=== PATIENT | female | born 1980 | race Caucasian/White ===

== ENCOUNTER 2017-09-03 02:28 | Emergency (ER) | payer OTHER ==
[~2017-09-03] VITALS: Ht 154.9 cm; Wt 63.5 kg
[~2017-09-03 02:28] MED LIST: CALC600T18 PO; FERR325E14 PO; FOLI1TAB19 PO; PREN-385 PO
[2017-09-03 02:32] VITALS: BP 120/86
[2017-09-03] MEDS ORDERED: NACL 0.9% 1,000 ML IV SCH (03:02)
[2017-09-03] MEDS ORDERED: ACETAMINOPHEN EXTRA STRENGTH 500 MG TAB PO ONE (03:05)
[2017-09-03 03:28] LABS: APPEARANCE,URINE CLEAR (CLEAR); BILIRUBIN,URINE NEGATIVE (NEGATIVE); BLOOD, URINE 3+ (NEGATIVE); COLOR,URINE YELLOW (YELLOW); LEUKOCYTE ESTERASE ,URINE NEGATIVE (NEGATIVE); NITRITE, URINE NEGATIVE (NEGATIVE); PH,URINE 5.5 (5.0-9.0); UGLUCOSE NEGATIVE (NEGATIVE)
[2017-09-03 03:48] LABS: RBC,URINE 0-5 (RARE) /HPF (0-5); WBC,URINE 0-5 (RARE) /HPF (0-5)
[2017-09-03 04:10] LABS: ALBUMIN 3.8 g/dL (3.4-5.0); ANION GAP 15.5 (8-16); CARBON DIOXIDE 23.3 mmol/L (21-32); CREATININE 0.8 mg/dL (0.6-1.3); POTASSIUM 3.8 mmol/L (3.5-5.1); TOTAL BILIRUBIN 0.3 mg/dL (0.0-1.0)
[2017-09-03 04:19] LABS: HEMATOCRIT 37.1 % (36-48); MEAN CORPUSCULAR HEMOGLOBIN 25 pg (27-31); MEAN CORPUSCULAR HGB CONC 32 g/dL (33-37); PLATELET COUNT (AUTO) 252 K/uL (140-450); RED BLOOD CELL COUNT(AUTO) 4.82 MIL/uL (4.20-5.40); RED CELL DISTRIBUTION WIDTH 20.9 % (11.6-13.7); WHITE BLOOD COUNT (AUTO) 8.5 K/uL (4.8-10.8)
[2017-09-03 04:49] LABS: EOSINOPHILS % (MANUAL) 1 % (0-4); LYMPHOCYTES % (MANUAL) 32 % (20-46); MONOCYTES % (MANUAL) 10 % (5-12)
[2017-09-03 05:01] VITALS: BP 120/86
== END 2017-09-03 05:01 | disposition home or self-care (01) ==
LOC: MED 02:28
DX: O20.0 Threatened abortion (principal); Z79.899 Other long term (current) drug therapy; Z3A.01 Less than 8 weeks gestation of pregnancy
CPT/HCPCS: 36415; 76817; 80053; 81001; 83690; 84702; 85025; 86900; 86901; 99285; Q0092; 81025

== ENCOUNTER 2018-12-25 02:23 | Inpatient (IN) | payer OTHER ==
[~2018-12-25] VITALS: Ht 154.9 cm; Wt 63.5 kg
--- NOTE | 2018-12-25 02:40 | NUR ---
PATIENT LAYING SUPINE IN BED. IN SEVERE PAIN. DR FRIEDMAN MADE AWARE. BED IN LOW LOCKED POSTION. PATIENT ON MONITOR.
[2018-12-25 02:45] VITALS: BP 139/85
--- NOTE | 2018-12-25 02:45 | NUR ---
DR FRIEDMAN AT BEDSIDE ASSESSING PATIENT.
[2018-12-25] MEDS ORDERED: NACL 0.9% 500 ML IV ONE (02:53)
[2018-12-25] MEDS ORDERED: ONDANSETRON 4 MG/2 ML VIAL IVP ONE (02:55)
[2018-12-25] MEDS ORDERED: KETOROLAC 30 MG/ML VIAL IVP ONE (02:55)
--- NOTE | 2018-12-25 03:00 | NUR ---
20G IV STARTED IN RAC. PATENT, FLUSHED WITH GOOD BLOOD RETURN. PATIENT TOLERATED WELL.
[2018-12-25 03:14] LABS: BASOPHILS % (AUTO) 0.5 % (0.0-2.0); EOSINOPHILS # (AUTO) 0.2 K/uL (0-0.4); EOSINOPHILS % (AUTO) 1.8 % (0.0-4.0); HEMATOCRIT 38.5 % (36-48); LYMPHOCYTES # (AUTO) 2.4 K/uL (2.5-16.5); LYMPHOCYTES % (AUTO) 24.7 % (20.5-51.1); MEAN CORPUSCULAR HEMOGLOBIN 30 pg (27-31); MEAN CORPUSCULAR HGB CONC 34 g/dL (33-37); MEAN CORPUSCULAR VOLUME 88.6 fL (80-94); MONOCYTES # (AUTO) 0.7 K/uL (0.8-1.0); MONOCYTES % (AUTO) 7.4 % (1.7-9.3); NEUTROPHILS # (AUTO) 6.5 K/uL (1.8-7.7); NEUTROPHILS % (AUTO) 65.6 % (42.2-75.2); PLATELET COUNT (AUTO) 299 K/uL (140-450); RED BLOOD CELL COUNT(AUTO) 4.35 MIL/uL (4.20-5.40); RED CELL DISTRIBUTION WIDTH 13.2 % (11.6-13.7); WHITE BLOOD COUNT (AUTO) 9.9 K/uL (4.8-10.8)
[2018-12-25 03:15] LABS: ANION GAP 12.3 (8-16); CARBON DIOXIDE 28.9 mmol/L (21-32); CREATININE 0.8 mg/dL (0.6-1.3); POTASSIUM 3.2 mmol/L (3.5-5.1)
[2018-12-25] MEDS ORDERED: MORPHINE SULFATE 2 MG/ML SYR IVP ONE (03:15)
[2018-12-25 03:23] LABS: ALBUMIN 3.5 g/dL (3.4-5.0); TOTAL BILIRUBIN 0.4 mg/dL (0.0-1.0)
--- NOTE | 2018-12-25 03:39 | NUR ---
PATIENT COMPLAINING OF CONTINUED SEVERE PAIN AND STATES THAT SHE NEEDS SOMETHING MORE FOR THE PAIN. DR FRIEDMAN MADE AWARE.
[2018-12-25] MEDS ORDERED: LORazepam 2 MG/ML VIAL IVP ONE (03:40)
--- NOTE | 2018-12-25 03:50 | NUR ---
PATIENT TAKEN TO CT IN WHEELCHAIR
--- NOTE | 2018-12-25 04:22 | NUR ---
patient sleeping in bed. arousable, states pain has improved. vss on monitor.
--- NOTE | 2018-12-25 05:58 | NUR ---
PATIENT RESTING IN BED. NO NEEDS STATED AT THIS TIME.
--- NOTE | 2018-12-25 06:46 | NUR ---
SPOKE WITH CASE MANAGEMENT THEY STATED SHE WOULD BE CLEARED TO BE ADMITTED.
[2018-12-25] MEDS ORDERED: ACETAMINOPHEN 325 MG TAB PO PRN (07:00)
[2018-12-25] MEDS ORDERED: ALBUTEROL 0.083% 2.5 MG/3 ML NEBU INH PRN (07:00)
[2018-12-25] MEDS ORDERED: ONDANSETRON 4 MG/2 ML VIAL IVP PRN (07:00)
[2018-12-25] MEDS ORDERED: HYDROcodone/APAP 5/325 MG 1 TAB TAB PO PRN (07:00)
[2018-12-25] MEDS ORDERED: MORPHINE SULFATE 4 MG/ML SYR IVP PRN (07:00)
--- NOTE | 2018-12-25 07:25 | NUR ---
REPORT GIVEN TO MED SURG NURSE FOR TRANSFER OF CARE. PATIENT ADMITTED TO ROOM 120-A. TAKEN IN [facility] DURING TRANSFER.
[2018-12-25 07:30] VITALS: BP 110/83
--- NOTE | 2018-12-25 07:30 | NUR ---
RECEIVED PT FROM ER NURSE VIA MALLORY, PT IS AWAKE AND AMBULATED TO THE BED, PERIPHERAL LINE ON THE RT AC G. 20 ON SALINE LOCK, SURGICAL INCISION NOTED FROM AN UMBILICAL HERNIA REPAIR DONE TO PT., PT DENIES PAIN, SIDE RAILS WERE UP AND BED IN LOW POSITION, NO SIGN OF DISTRESS NOTED AND WILL CONTINUE TO MONITOR PT.
[2018-12-25 08:11] LABS: PROTHROMBIN TIME 9.3 secs (10.8-13.4)
--- NOTE | 2018-12-25 08:20 | NUR ---
MRSA SWAB DONE TO PT NOW AND SAMPLE WAS SENT TO LAB.
--- NOTE | 2018-12-25 08:20 | NUR ---
PATIENT HAS BEEN SCREENED AND CATEGORIZED LOW NUTRITION RISK. PATIENT WILL BE SEEN WITHIN 7 DAYS OF ADMISSION. 12/31/[address]
[2018-12-25] MEDS: DEXT 5% /NACL 0.9% 1,000 ML IV SCH ×2 (08:25→17:14)
[2018-12-25] MEDS ORDERED: KCL 20 MEQ/WATER INJ PREMIX 200 ML IV SCH (09:00)
[2018-12-25] MEDS ORDERED: POTASSIUM CHLORIDE 40 MEQ, LIDOCAINE MPF 1% 25 MG in NACL 0.9% 250 ML IV SCH (09:30)
--- NOTE | 2018-12-25 09:48 | NUR ---
PT WAS GIVEN POTASSIUM 40MEQ IV NOW, FOR THE K LEVEL OF 3.2, WILL MONITOR PT.
--- NOTE | 2018-12-25 11:50 | NUR ---
Dopster Note: Basic Screen: Yes High Risk DC Screen [place]: SOFIA Caba Relationship: SISTER Pre-Admission Living Arrangements: Lives with Other Prior ADL Independent Current Home Health Name/Tel: N/A Current DME/02 Name/Tel: N/A Current Hospice Name/Tel: N/A Current Dialysis Name/Tel: N/A Healthcare Decision Maker: Patient Advance Directive No - REFUSED Physician Orders for Life Sustaining Treatment Form No Patient/Family Have Educational Needs No Information Taught: Advance Directive Person Taught: Patient Teaching Tools: Verbal Factors Affecting Learning: None Participation Level: Refused Evaluation: Verbalizes Understanding Needs Additional Education: No Discipline: Case Mgt/Social Svcs Tentative Discharge Plan/Destination: No Needs Identified Will require assistance post discharge: No Referred to Workforce Development Program Director: No Tentative Discharge Plan Summary: Patient is a 38 year old male admitted for abdominal wall hematoma. Patient has no significant PMHX. Patient was admitted from home. SW verified demographics with patient. Patient stated she now lives at a new address: [address] [place] [address] with sister. Patient reports no mental health history and no substance abuse history. SW offered education on advanced directive but patient refused. Patient's tentative plan after discharge is to return home. No further needs identified. Signature: TYREE Krause Date: Dec 25, 2018 Time: 11:49
[2018-12-25] MEDS ORDERED: POTASSIUM CHLORIDE 10 MEQ TABER PO SCH (11:52)
--- NOTE | 2018-12-25 11:59 | NUR ---
PT WAS GIVEN 40MEQ K PO, WILL MONITOR PT.
--- NOTE | 2018-12-25 12:27 | NUR ---
PT WAS GIVEN ANCEF IVPB NOW, WILL MONITOR PT.
--- NOTE | 2018-12-25 13:50 | NUR ---
DC [age] YRS OLD FEMALE ADMITTED FROM HOME WITH A DX OF ABDOMINAL WALL HEMATOMA. PT HAS RECENT UMBILICAL HERNIA RE[AIR [address] EDWARDS. PT HAS NO MEDICAL HX. INDEPENDENT TO PERFORM ADLS . CT OF ABD DONE SHOWN ABDOMINAL WALL HEMATOMA , PAIN CONTROL ,SURGERY EVAL WITH DR EDWARDS. CM TO FOLLOW.
[2018-12-25 16:00] VITALS: BP 102/70
--- NOTE | 2018-12-25 19:07 | NUR ---
ENDORSED PATIENT TO NO SABA RN, FOR CONTINUITY OF CARE.
--- NOTE | 2018-12-25 19:08 | NUR ---
RECEIVED BEDSIDE REPORT FROM AM SHIFT NURSE. PT IS LYING IN BED AWAKE AND ALERT. NO SOB OR DISTRESS NOTED. IV ACCESS NOTED ON RIGHT AC 20 GAUGE, PATENT AND INFUSING WELL. INITIAL ASSESSMENT DONE. CALL LIGHT WITHIN PATIENT REACH. BOARD UPDATED. WILL CONTINUE TO MONITOR PATIENT.
--- NOTE | 2018-12-25 22:03 | NUR ---
ROUNDS DONE. VISIBLE CHEST RISE AND FALL NOTED. WILL CONTINUE TO MONITOR PATIENT.
--- NOTE | 2018-12-26 00:05 | NUR ---
VITALS TAKEN. NO DISTRESS NOTED. WILL CONTINUE TO MONITOR PATIENT.
[2018-12-26 00:10] VITALS: BP 98/64
--- NOTE | 2018-12-26 02:30 | NUR ---
ROUNDS DONE. VISIBLE CHEST RISE AND FALL NOTED. WILL CONTINUE TO MONITOR PATIENT.
[2018-12-26] MEDS: DEXT 5% /NACL 0.9% 1,000 ML IV SCH (02:35)
--- NOTE | 2018-12-26 04:43 | NUR ---
IV ANTIBIOTIC ANCEF STARTED AT THIS TIME. WILL CONTINUE TO MONITOR PATIENT.
[2018-12-26 06:18] LABS: BASOPHILS # (AUTO) 0.1 K/uL (0.00-0.22); EOSINOPHILS # (AUTO) 0.2 K/uL (0-0.4); EOSINOPHILS % (AUTO) 3.7 % (0.0-4.0); HEMATOCRIT 35.9 % (36-48); LYMPHOCYTES # (AUTO) 2.6 K/uL (2.5-16.5); LYMPHOCYTES % (AUTO) 43.8 % (20.5-51.1); MEAN CORPUSCULAR HEMOGLOBIN 30 pg (27-31); MEAN CORPUSCULAR HGB CONC 34 g/dL (33-37); MEAN CORPUSCULAR VOLUME 89.7 fL (80-94); MONOCYTES # (AUTO) 0.7 K/uL (0.8-1.0); MONOCYTES % (AUTO) 11.2 % (1.7-9.3); NEUTROPHILS # (AUTO) 2.4 K/uL (1.8-7.7); NEUTROPHILS % (AUTO) 40.3 % (42.2-75.2); PLATELET COUNT (AUTO) 259 K/uL (140-450); RED CELL DISTRIBUTION WIDTH 13.3 % (11.6-13.7); WHITE BLOOD COUNT (AUTO) 5.8 K/uL (4.8-10.8)
[2018-12-26 06:42] LABS: ANION GAP 12.1 (8-16); CREATININE 0.7 mg/dL (0.6-1.3); POTASSIUM 4.1 mmol/L (3.5-5.1)
--- NOTE | 2018-12-26 06:52 | NUR ---
PATIENT IN STABLE CONDITION. WILL ENDORSE TO AM SHIFT NURSE FOR CONTINUITY OF CARE.
[2018-12-26 06:53] LABS: PHOSPHORUS 3.8 mg/dL (2.5-4.9)
[2018-12-26 07:07] LABS: MAGNESIUM 1.7 mg/dL (1.8-2.4)
--- NOTE | 2018-12-26 07:20 | NUR ---
RECEIVED BEDSIDE REPORT FROM DINING ROOM COORDINATOR NURSE FOR CONTINUITY OF CARE. PT IS ASLEEP, AROUSABLE. NO SOB OR DISTRESS NOTED ON ROOM AIR. IV ACCESS NOTED ON RIGHT AC 20 GAUGE, PATENT AND INFUSING IVF WELL. UPDATED BOARD. CALL LIGHT WITHIN REACH. WILL CONTINUE TO MONITOR PATIENT.
[2018-12-26 07:59] VITALS: BP 108/71
--- NOTE | 2018-12-26 08:15 | NUR ---
PATIENT AWAKE, VS WNL. VERBALIZED PLAN OF CARE, SHE VERBALIZED UNDERSTANDING. PATIENT DENIES PAIN. INQUIRE ABOUT DR. EDWARDS RN WILL FOLLOW UP. PATIENT HAS NO COMPLAINTS AT THIS TIME. CALL LIGHT WITHIN REACH. WILL CONTINUE TO MONITOR PATIENT.
--- NOTE | 2018-12-26 09:01 | NUR ---
CIGARETTE VENDOR JOWIE SPOKE WITH DR. EDWARDS. PER DR. EDWARDS, PATIENT CAN BE DISCHARGE HOME AND CALL DR. EDWARDS'S OFFICE FOR APPOINTMENT TOMORROW. CIGARETTE VENDOR JOWIE FORWARDED THIS INFORM TO RN. PATIENT UP AND OUT OF BED DOING AM CARE. NO COMPLAINTS AT THIS TIME. WILL CONTINUE TO MONITOR AND UPDATE PATIENT ABOUT HER STATUS.
--- NOTE | 2018-12-26 10:09 | NUR ---
PAGED DR. SIMPSON. WAITING FOR HIM TO CALL BACK TO UPDATE HIM ABOUT INFORMATION EXCHANGED WITH DR. EDWARDS.
[2018-12-26] MEDS ORDERED: MAGNESIUM OXIDE 400 MG TAB PO SCH (11:30)
== END 2018-12-26 11:20 | disposition home or self-care (01) | DRG 813 ==
LOC: MED 02:23 → MTU 06:57 → MED 07:07
PROVIDERS: ADMIT Internal Medicine Pulmonary Disease; ATTEND Internal Medicine Pulmonary Disease
DX: L76.32 Postprocedural hematoma of skin and subcutaneous tissue following other procedure (principal); Y83.8 Other surgical procedures as the cause of abnormal reaction of the patient, or of later complication, without mention of misadventure at the time of the procedure
CPT/HCPCS: 36415; 80048; 80053; 83735; 84100; 85025; 85610; 85730; 87081; 96374; 96375; 99285; J0690; J1885; J2001; J2060; J2270; J2405; J3480; J7030; J7042; J7060

== ENCOUNTER 2020-05-25 22:24 | Emergency (ER) | payer OTHER ==
[~2020-05-25] VITALS: Ht 154.9 cm; Wt 64.4 kg
[2020-05-25 22:46] VITALS: BP 102/68
[2020-05-26] MEDS ORDERED: AZIT250T3 PO (00:50)
[2020-05-26] MEDS ORDERED: BENZ-196 PO (00:50)
[2020-05-26] MEDS ORDERED: PROM118S6 PO (00:50)
[2020-05-26] MEDS ORDERED: PRED20TA5 PO (00:50)
[2020-05-26 01:09] VITALS: BP 127/72
== END 2020-05-26 01:05 | disposition home or self-care (01) ==
LOC: MED 22:24
DX: J40 Bronchitis, not specified as acute or chronic (principal); Z79.899 Other long term (current) drug therapy
CPT/HCPCS: 71045; 99283

== ENCOUNTER 2020-12-04 21:13 | Emergency (ER) | payer OTHER ==
[~2020-12-04] VITALS: Ht 154.9 cm; Wt 73.5 kg
[~2020-12-04 21:13] MED LIST changes: +AZIT250T3 PO; +BENZ-196 PO; -CALC600T18 PO; -FERR325E14 PO; -FOLI1TAB19 PO; +PRED20TA5 PO; -PREN-385 PO; +PROM118S6 PO
[2020-12-04 21:45] VITALS: BP 137/79
[2020-12-04] MEDS ORDERED: AMOXIL/CLAVULANATE 875/125 MG 1 TAB PO ONE (22:10)
[2020-12-04] MEDS ORDERED: HYDROcodone/APAP 5/325 MG 1 TAB TAB PO ONE (22:10)
[2020-12-04] MEDS ORDERED: AMOX500C25 PO (22:14)
[2020-12-04] MEDS ORDERED: IBUP-2218 PO (22:15)
[2020-12-04 22:48] VITALS: BP 137/79
--- NOTE | 2020-12-04 22:48 | NUR ---
Patient discharged with v/s stable. Written and verbal after care instructions given and explained. Patient verbalized understanding. Ambulatory with steady gait. All questions addressed prior to discharge. Advised to follow up with PMD.
[2020-12-05] MEDS ORDERED: CRUSHER, PILL MC ONE (00:08)
== END 2020-12-04 22:48 | disposition home or self-care (01) ==
LOC: MED 21:13
DX: H66.91 Otitis media, unspecified, right ear (principal); R22.0 Localized swelling, mass and lump, head; Z79.899 Other long term (current) drug therapy
CPT/HCPCS: 99283

== ENCOUNTER 2021-03-27 23:57 | Emergency (ER) | payer OTHER ==
[~2021-03-27] VITALS: Ht 154.9 cm; Wt 68.9 kg
[~2021-03-27 23:57] MED LIST changes: +AMOX500C25 PO; +IBUP-2218 PO
[2021-03-28 00:05] VITALS: BP 121/83
--- NOTE | 2021-03-28 00:05 | NUR ---
TO [facility]
[2021-03-28] MEDS ORDERED: ACETAMINOPHEN EXTRA STRENGTH 500 MG TAB PO ONE (00:35)
[2021-03-28] MEDS ORDERED: IBUP-1801 PO (01:42)
[2021-03-28] MEDS ORDERED: HYDR-5080 PO (01:42)
[2021-03-28 02:06] VITALS: BP 121/83
== END 2021-03-28 02:07 | disposition home or self-care (01) ==
LOC: MED 23:57
DX: S62.327A Displaced fracture of shaft of fifth metacarpal bone, left hand, initial encounter for closed fracture (principal); Z79.899 Other long term (current) drug therapy; X58.XXXA Exposure to other specified factors, initial encounter; Y93.89 Activity, other specified; Y92.89 Other specified places as the place of occurrence of the external cause; Y99.8 Other external cause status
CPT/HCPCS: 29125; 73140; 99283; Q0092

== ENCOUNTER 2021-07-19 21:35 | Emergency (ER) | payer OTHER ==
[~2021-07-19] VITALS: Ht 154.9 cm; Wt 68.0 kg
[~2021-07-19 21:35] MED LIST changes: +HYDR-5080 PO; +IBUP-1801 PO
--- NOTE | 2021-07-19 22:09 | NUR ---
Called first time,- no show in lobby or outside.
[2021-07-19 22:43] VITALS: BP 128/77
--- NOTE | 2021-07-20 00:18 | NUR ---
Patient ambulated to bed 9.
[2021-07-20] MEDS ORDERED: BACITRACIN OINT 500 UNITS/GM PKT TP ONE (00:30)
[2021-07-20] MEDS ORDERED: IBUPROFEN 600 MG TAB PO ONE (00:30)
[2021-07-20] MEDS ORDERED: AMOXIL/CLAVULANATE 875/125 MG 1 TAB PO ONE (00:30)
[2021-07-20] MEDS ORDERED: AMOX1TAB8 PO (00:42)
[2021-07-20] MEDS ORDERED: IBUP-2213 PO (00:43)
[2021-07-20 01:04] VITALS: BP 128/77
--- NOTE | 2021-07-20 01:04 | NUR ---
Patient discharged. Written and verbal after care instructions given and explained. Patient alert, oriented and verbalized understanding of instructions. Ambulatory with steady gait. All questions addressed prior to discharge. ID band removed. Patient advised to follow up with PMD. Rx of Amox-Clav 875-125mg & ibuprofen given. Patient educated on indication of medication including possible reaction and side effects. Opportunity to ask questions provided and answered.
== END 2021-07-20 01:04 | disposition home or self-care (01) ==
LOC: MED 21:35
DX: S61.451A Open bite of right hand, initial encounter (principal); Z86.69 Personal history of other diseases of the nervous system and sense organs; Z79.1 Long term (current) use of non-steroidal anti-inflammatories (NSAID); Z79.2 Long term (current) use of antibiotics; Z79.891 Long term (current) use of opiate analgesic; Z79.899 Other long term (current) drug therapy; W54.0XXA Bitten by dog, initial encounter; Y93.89 Activity, other specified; Y92.89 Other specified places as the place of occurrence of the external cause; Y99.8 Other external cause status
CPT/HCPCS: 90471; 90715; 99283

== ENCOUNTER 2021-12-20 12:50 | Emergency (ER) | payer OTHER ==
[~2021-12-20] VITALS: Ht 160 cm; Wt 61.2 kg
[~2021-12-20 12:50] MED LIST changes: +AMOX1TAB8 PO; +IBUP-2213 PO
[2021-12-20 13:01] VITALS: BP 124/78
--- NOTE | 2021-12-20 13:14 | NUR ---
PT SWABBED AND SENT TO LAB
[2021-12-20] MEDS ORDERED: BENZ-300 PO (15:10)
[2021-12-20] MEDS ORDERED: IBUP-2213 PO (15:10)
[2021-12-20] MEDS ORDERED: SUD30 PO (15:10)
[2021-12-20] MEDS ORDERED: PROM118S5 PO (15:10)
[2021-12-20 15:27] VITALS: BP 118/65
== END 2021-12-20 15:28 | disposition home or self-care (01) ==
LOC: MED 12:50
DX: J06.9 Acute upper respiratory infection, unspecified (principal); Z20.822 Contact with and (suspected) exposure to COVID-19; R05.9 Cough, unspecified; Z79.899 Other long term (current) drug therapy
CPT/HCPCS: 99283